=== PATIENT | female | born 2000 | race Caucasian/White ===

== ENCOUNTER 2021-04-15 05:21 | Inpatient (IN) | payer OTHER ==
[~2021-04-15] VITALS: Ht 165.1 cm; Wt 97.5 kg
[2021-04-15 06:54] LABS: HEMOGLOBIN 9.4 gm/dl (12.3-15.3); RED BLOOD COUNT 3.81 M/UL (4.00-5.10); WHITE BLOOD COUNT 10.2 K/UL (4.5-11.0)
[2021-04-16 07:57] LABS: HEMOGLOBIN 9.6 gm/dl (12.3-15.3)
[2021-04-17] MEDS ORDERED: HEMOCYTE324 MG PO (12:18)
[2021-04-17] MEDS ORDERED: COLACE100 MG PO (12:18)
[2021-04-17] MEDS ORDERED: IBUPROFEN800 MG PO (12:18)
== END 2021-04-17 12:23 | disposition home or self-care (01) | DRG 807 ==
LOC: OB 05:21
PROVIDERS: Obstetrics & Gynecology; ADMIT Obstetrics & Gynecology
PROC: 10E0XZZ Delivery of Products of Conception, External Approach (ICD-10-PCS; principal; 2021-04-15)
PROC: 10907ZC Drainage of Amniotic Fluid, Therapeutic from Products of Conception, Via Natural or Artificial Opening (ICD-10-PCS; 2021-04-15)
PROC: 4A1HXCZ Monitoring of Products of Conception, Cardiac Rate, External Approach (ICD-10-PCS; 2021-04-15)
PROC: 3E0234Z Introduction of Serum, Toxoid and Vaccine into Muscle, Percutaneous Approach (ICD-10-PCS; 2021-04-15)
DX: O24.420 Gestational diabetes mellitus in childbirth, diet controlled (principal); Z37.0 Single live birth; O36.63X0 Maternal care for excessive fetal growth, third trimester, not applicable or unspecified; Z3A.38 38 weeks gestation of pregnancy; Z20.822 Contact with and (suspected) exposure to COVID-19; Z98.890 Other specified postprocedural states; Z23 Encounter for immunization
CPT/HCPCS: 82800; 82962; 85014; 85018; 85025; 85461; 86850; 86900; 86901; 90471; 90707; 90715; J2590; J2790; J7030